=== PATIENT | male | born 1995 ===

== ENCOUNTER 2017-01-21 11:22 | Emergency (ER) | payer OTHER ==
[2017-01-21 11:35] VITALS: BP 122/68; PULSE 68
[2017-01-21] MEDS ORDERED: Bacitracin 500 Units/gm Oint Foilpak UD TOP ONE (11:42)
--- NOTE | 2017-01-21 11:51 | C.PDOC ---
History Of Present Illness 21 y/o male presents with injury to left thumb from a table saw; occurred just prior to arrival. +pain, no active bleeding. last tdap unknown. Time Seen by Provider: 01/21/17 11:37 Chief Complaint (Nursing): Abnormal Skin Integrity History Per: Patient History/Exam Limitations: no limitations Onset/Duration Of Symptoms: Hrs (1) Current Symptoms Are (Timing): Still Present Location Of Injury: Left: Hand (thumb) Quality Of Symptoms: Painful Severity: Moderate Past Medical History Reviewed: Historical Data, Nursing Documentation, Vital Signs Vital Signs: Last Vital Signs Temp 97.5 F L 01/21/17 11:38 Pulse 68 01/21/17 11:38 Resp 16 01/21/17 11:38 BP 122/68 01/21/17 11:38 Pulse Ox 98 01/21/17 11:55 - Medical History PMH: No Chronic Diseases Family History: States: Unknown Family Hx - Social History Hx Alcohol Use: No Hx Substance Use: No - Immunization History Hx Tetanus Toxoid Vaccination: No Hx Influenza Vaccination: No Hx Pneumococcal Vaccination: No Review Of Systems Constitutional: Negative for: Fever, Chills Musculoskeletal: Positive for: Hand Pain (left thumb) Neurological: Negative for: Weakness, Numbness Physical Exam - Physical Exam Appears: Non-toxic, No Acute Distress Skin: Warm, Dry, Other (distal left thumb with jagged shallow avulsion type laceration of nail bed; approx 0.5 cm x 0.5 cm segment of nail missing, no active bleeding to exposed nail bed) Pulses: Left Radial: Normal Neurological/Psych: Oriented x3, Normal Speech, Normal Cognition ED Course And Treatment O2 Sat by Pulse Oximetry: 98 Medical Decision Making Medical Decision Making: laceration through nail, exposing small area of nail bed, no active bleeding, nothing to suture. wound care provided; bacitracin, bandage and splint applied to thumb. Disposition Counseled Patient/Family Regarding: Diagnosis, Need For Followup - Disposition Referrals: [facility] [Outside] Disposition: HOME/ ROUTINE Disposition Time: 12:13 Condition: STABLE Additional Instructions: Keep wound clean and dry. Wash with soap and water, then pat dry gently 2-3 times a day, then re-apply antibiotic ointment. Return to ER for any signs of infection such as redness, swelling, pus from wound. Take ibuprofen 600 mg by mouth every 6 hours if needed for pain. Instructions: Skin Avulsion (ED), Nail Avulsion (ED) Forms: Work Excuse - Clinical Impression Clinical Impression: Avulsion of skin of left thumb
[2017-01-21 12:05] VITALS: RESP 16; TEMP 97.5; O2SAT 98
== END 2017-01-21 12:20 | disposition home or self-care (01) ==
LOC: C.ER 11:22
DX: S61.112A Laceration without foreign body of left thumb with damage to nail, initial encounter (principal); W29.3XXA Contact with powered garden and outdoor hand tools and machinery, initial encounter; Y93.89 Activity, other specified; Y92.89 Other specified places as the place of occurrence of the external cause